=== PATIENT | male | born 1960 | race American Indian/Alaskan Native ===

== ENCOUNTER 2016-12-31 19:47 | Emergency (ER) | payer MEDICAID, OTHER ==
[2016-12-31 19:48] VITALS: BMI 34.5
[2016-12-31 19:55] VITALS: TEMP 97.9
--- NOTE | 2016-12-31 20:13 | ED PDOC ---
Arrival/HPI - General Chief Complaint: Dental Pain Time Seen by Provider: 12/31/16 19:52 Historian: Patient - History of Present Illness Narrative History of Present Illness (Text): 12/31/16 20:10 This 56-year-old male with a past medical history of dental caries since the emergency department complaining of left upper and left lower dental pain for 4 days. Patient stated dental pain has been causing headaches. He denies fever, diplopia, dizziness, nausea, vomiting, some breath, chest pain, abdominal pain, skin rash, or abnormal gait. Patient has an appointment to see his primary dentist next Wednesday. Time/Duration: < week Quality: Aching Context: Home Past Medical History - Provider Review Nursing Documentation Reviewed: Yes - Cardiac Hx Cardiac Disorders: No - Pulmonary Hx Respiratory Disorders: No - Neurological Hx Transient Ischemic Attacks (TIA): Yes (10 YEARS AGO) - HEENT Hx HEENT Disorder: Yes Hx Cataracts: Yes - Renal Hx Renal Disorder: Yes Hx Kidney Stones: Yes (30 YEARS AGO) - Endocrine/Metabolic Hx Endocrine Disorders: No - Hematological/Oncological Hx Anemia: Yes - Integumentary Hx Dermatological Disorder: No - Musculoskeletal/Rheumatological Hx Musculoskeletal Disorders: Yes Hx Back Pain: Yes Other/Comment: BACK AND KNEE PAIN - Gastrointestinal Hx Gastrointestinal Disorders: No - Genitourinary/Gynecological Hx Genitourinary Disorders: No - Psychiatric Hx Psychophysiologic Disorder: No Hx Substance Use: No - Surgical History Hx Gastric Bypass Surgery: Yes Hx Orthopedic Surgery: Yes (LEFT KNEE REPLACEMENT) - Anesthesia Hx Anesthesia: Yes Hx Anesthesia Reactions: No Hx Malignant Hyperthermia: No - Suicidal Assessment Feels Threatened In Home Enviroment: No Family/Social History Family/Social History: Other (Noncontributory) Smoking Status: Former Smoker Hx Alcohol Use: No Hx Substance Use: No Allergies/Home Meds Allergies/Adverse Reactions: Allergies No Known Allergies Allergy (Verified 12/31/16 19:58) Home Medications: Home Meds Medication Instructions Recorded Confirmed Oxycodone HCl [Roxicodone] 5 mg PO HS 12/31/16 12/31/16 Tizanidine HCl [Zanaflex Capsule] 4 mg PO HS 12/31/16 12/31/16 Review of Systems - Review of Systems Constitutional: Normal. absent: Fatigue, Weight Change, Fevers Eyes: Normal ENT: Other (Dental pain) Respiratory: Normal. absent: SOB, Cough Cardiovascular: Normal. absent: Chest Pain, Palpitations Gastrointestinal: Normal. absent: Abdominal Pain, Nausea, Vomiting Genitourinary Male: Normal. absent: Dysuria Musculoskeletal: Normal. absent: Arthralgias, Back Pain, Neck Pain, Joint Swelling, Myalgias Skin: Normal. absent: Rash Neurological: Headache. absent: Dizziness, Focal Weakness, Gait Changes, Speech Changes, Facial Droop, Disequilibrium, Seizure Endocrine: Normal Hemo/Lymphatic: Normal Psychiatric: Normal Physical Exam Vital Signs Temp Pulse Resp BP Pulse Ox 12/31/16 19:52 97.9 F 12/31/16 19:48 98.1 F 90 17 142/92 H 100 Temperature: Afebrile Blood Pressure: Hypertensive Pulse: Regular Respiratory Rate: Normal Appearance: Positive for: Well-Appearing, Non-Toxic, Comfortable Pain Distress: None Mental Status: Positive for: Alert and Oriented X 3 - Systems Exam Head: Present: Atraumatic, Normocephalic, Other (No facial swelling) Pupils: Present: PERRL Extroacular Muscles: Present: EOMI Conjunctiva: Present: Normal Mouth: Present: Moist Mucous Membranes, Normal Lips, Normal Tounge, Other ( generalized caries). No: Drooling, Trismus Pharnyx: Present: Normal. No: ERYTHEMA, EXUDATE, TONSILS ENLARGED Nose (External): Present: Atraumatic Nose (Internal): Present: Normal Inspection Neck: Present: Normal Range of Motion, Trachea Midline, Other. No: Meningeal Signs, MIDLINE TENDERNESS, Paraspinal Tenderness Respiratory/Chest: Present: Clear to Auscultation, Good Air Exchange. No: Respiratory Distress, Accessory Muscle Use Cardiovascular: Present: Regular Rate and Rhythm, Normal S1, S2. No: Murmurs Abdomen: Present: Normal Bowel Sounds. No: Tenderness, Distention, Peritoneal Signs Back: Present: Normal Inspection Upper Extremity: Present: Normal Inspection, Normal ROM. No: Cyanosis, Edema Lower Extremity: Present: Normal Inspection, Normal ROM. No: Edema Neurological: Present: GCS=15, CN II-XII Intact, Speech Normal, Motor Func Grossly Intact, Normal Sensory Function, Normal Cerebellar Funct, Gait Normal, Memory Normal Skin: Present: Warm, Dry, Normal Color. No: Rashes Psychiatric: Present: Alert, Oriented x 3, Normal Insight, Normal Concentration Medical Decision Making ED Course and Treatment: 12/31/16 21:03 Patient began complaining of left upper and lower molar pain 4 days. Also noted this causing mild headache. Physical exam was unremarkable except for generalized dental caries. No dental abscess, no facial swelling. Patient appears nontoxic, positive. During my physical exam patient continuously using his cell phone and texting. Patient has abnormal speech, is alert and oriented 3, he has a normal gait. Disposition is requesting antibiotics and he wishes to be discharged home soon. She noted he has appointment to see his doctor next Wednesday, in 4 days. Patient was recommended to return to the emergency department if his dental pain or headache worsen. His vital signs were reviewed and and they are unremarkable Re-evaluation Time: 21:06 Reassessment Condition: Re-examined, Improved - Medication Orders Current Medication Orders: Discontinued Medications Amoxicillin (Amoxil 500 Mg Cap) 500 mg PO STAT STA PRN Reason: Protocol Stop: 12/31/16 20:13 Last Admin: 12/31/16 20:51 Dose: 500 mg Ketorolac Tromethamine (Toradol) 30 mg IM STAT STA Stop: 12/31/16 20:12 Last Admin: 12/31/16 20:51 Dose: 30 mg MAR Pain Assessment Document 12/31/16 20:51 SF (Rec: 12/31/16 20:52 [id number]) Pain Reassessment Is this a pain reassessment? Yes Sleep Is patient sleeping during reassessment? No Presence of Pain Presence of Pain Yes IM Administration Charges Document 12/31/16 20:51 SF (Rec: 12/31/16 20:52 [id number]) Injection Site MAR Injection Site Left Deltoid Charges for Administration # of IM Administrations 1 Disposition/Present on Arrival - Present on Arrival Any Indicators Present on Arrival: No History of DVT/PE: No History of Uncontrolled Diabetes: No Urinary Catheter: No History of Decub. Ulcer: No History Surgical Site Infection Following: None - Disposition Have Diagnosis and Disposition been Completed?: Yes Diagnosis: Pain due to dental caries, Headache Disposition: HOME/ ROUTINE Disposition Time: 21:07 Patient Plan: Discharge Condition: GOOD Discharge Instructions (ExitCare): Dental Caries (ED), General Headache (ED) Additional Instructions: Private doctor tomorrow for follow-up visit. Medication as instructed with food. Return to emergency if dental pain worsen or if you develop a fever or stiffness or neck. Have your blood pressure recheck in 2-3 days by your doctor Prescriptions: Amoxicillin [Amoxil 500 mg Cap] 500 mg PO TID #30 cap Chlorhexidine 0.12% [Peridex] 15 ml PO BID #1 bottle Famotidine [Pepcid] 40 mg PO DAILY #10 tablet Naproxen 500 mg PO BID PRN #14 tab PRN Reason: Pain, Severe (8-10) Referrals: Jose Medellin MD [Primary Care Provider] - Follow up with primary Forms: [facility] (Ugandan), WORK NOTE
[2016-12-31 20:41] VITALS: RESP 17
[2016-12-31 21:17] VITALS: BP 140/89; PULSE 91; O2SAT 99
== END 2016-12-31 21:15 | disposition home or self-care (01) ==
LOC: ED 19:47
DX: K02.9 Dental caries, unspecified (principal); R51 Headache; K08.89 Other specified disorders of teeth and supporting structures
CPT/HCPCS: 96372; 99283; J1885

== ENCOUNTER 2017-01-07 02:38 | Emergency (ER) | payer MEDICAID ==
[2017-01-07 02:45] VITALS: BMI 32.5
[2017-01-07] MEDS ORDERED: DiphenhydrAMINE 50 mg/ml Inj IVP STA (02:58)
--- NOTE | 2017-01-07 03:17 | ED PDOC ---
Arrival/HPI - General Chief Complaint: Headache Time Seen by Provider: 01/07/17 02:39 Historian: Patient - History of Present Illness Narrative History of Present Illness (Text): 01/07/17 03:16 A 56 year old male, whose past medical history includes TIA, presents to the emergency department complaining of left sided headache. Patient reports he came to the emergency department a week ago for evaluation of dental pain and headache. Reports tooth was pulled two days ago. Notes some nausea but denies any fever, vomiting, abdominal pain or any other complaints at this time. Time/Duration: < week Symptom Onset: Sudden Symptom Course: Unchanged Activities at Onset: Rest Context: Home Past Medical History - Provider Review Nursing Documentation Reviewed: Yes - Cardiac Hx Cardiac Disorders: No - Pulmonary Hx Respiratory Disorders: No - Neurological Hx Transient Ischemic Attacks (TIA): Yes (10 YEARS AGO) - HEENT Hx HEENT Disorder: Yes Hx Cataracts: Yes - Renal Hx Renal Disorder: Yes Hx Kidney Stones: Yes (30 YEARS AGO) - Endocrine/Metabolic Hx Endocrine Disorders: No - Hematological/Oncological Hx Anemia: Yes - Integumentary Hx Dermatological Disorder: No - Musculoskeletal/Rheumatological Hx Musculoskeletal Disorders: Yes Hx Back Pain: Yes Other/Comment: BACK AND KNEE PAIN - Gastrointestinal Hx Gastrointestinal Disorders: No - Genitourinary/Gynecological Hx Genitourinary Disorders: No - Psychiatric Hx Psychophysiologic Disorder: No Hx Substance Use: No - Surgical History Hx Gastric Bypass Surgery: Yes (2002) Hx Orthopedic Surgery: Yes (LEFT KNEE REPLACEMENT) - Anesthesia Hx Anesthesia: Yes Hx Anesthesia Reactions: No Hx Malignant Hyperthermia: No - Suicidal Assessment Feels Threatened In Home Enviroment: No Family/Social History - Physician Review Nursing Documentation Reviewed: Yes Family/Social History: No Known Family HX Smoking Status: Former Smoker Hx Alcohol Use: No Hx Substance Use: No Allergies/Home Meds Allergies/Adverse Reactions: Allergies No Known Allergies Allergy (Verified 01/07/17 02:53) Home Medications: Home Meds Medication Instructions Recorded Confirmed Oxycodone HCl [Roxicodone] 5 mg PO HS 12/31/16 01/07/17 Tizanidine HCl [Zanaflex Capsule] 4 mg PO HS 12/31/16 01/07/17 Review of Systems - Physician Review All systems were reviewed & negative as marked: Yes - Review of Systems Constitutional: absent: Fevers Gastrointestinal: Nausea. absent: Abdominal Pain, Vomiting Neurological: Headache (left sided) Physical Exam Vital Signs Reviewed: Yes Vital Signs Temp Pulse Resp BP Pulse Ox 01/07/17 04:38 76 16 125/82 96 01/07/17 02:38 98.3 F 78 16 125/87 98 Appearance: Positive for: Well-Appearing, Non-Toxic, Comfortable Pain Distress: None Mental Status: Positive for: Alert and Oriented X 3 - Systems Exam Head: Present: Atraumatic, Normocephalic Pupils: Present: PERRL Extroacular Muscles: Present: EOMI Conjunctiva: Present: Normal Mouth: Present: Moist Mucous Membranes, Other (multiple dental caries) Neck: Present: Normal Range of Motion Respiratory/Chest: Present: Clear to Auscultation, Good Air Exchange. No: Respiratory Distress, Accessory Muscle Use Cardiovascular: Present: Regular Rate and Rhythm, Normal S1, S2. No: Murmurs Abdomen: Present: Normal Bowel Sounds. No: Tenderness, Distention, Peritoneal Signs Back: Present: Normal Inspection Upper Extremity: Present: Normal Inspection. No: Cyanosis, Edema Lower Extremity: Present: Normal Inspection. No: Edema Neurological: Present: GCS=15, CN II-XII Intact, Speech Normal Skin: Present: Warm, Dry, Normal Color. No: Rashes Psychiatric: Present: Alert, Oriented x 3, Normal Insight, Normal Concentration Medical Decision Making ED Course and Treatment: 01/07/17 03:14 Impression: A 56 year old male with left sided headache. Plan: -- CT head -- labs -- Benadryl, Reglan -- Reassess and disposition Prior Visits: Notes and results from previous visits were reviewed. Patient was last seen in the emergency department on 12/31/16 for evaluation of dental pain and headache. Progress Notes: CT Head Without Intravenous Contrast FINDINGS: LIMITATIONS: Mild streak/motion artifact. BRAIN: Diffuse, mild, age-related cortical atrophy and ventriculomegaly. No significant acute abnormality identified. No acute hemorrhage seen within the brain. No acute extra-axial fluid collections visualized. No evidence of significant mass effect within the brain. VENTRICLES: Best seen on image 14 of series 2, there is a 9 mm round, well defined masslike density in the left temporal lobe medially, which is suspected to be intraventricular, located in the temporal horn of the left lateral ventricle. This has a density similar to the normal brain parenchyma. It does appear to be causing mild dilatation of the left temporal horn. There is no evidence of diffuse hydrocephalus. BONES/JOINTS: No acute fractures or other acute bony abnormality noted. SOFT TISSUES: No acute abnormality of the visualized soft tissues is seen. SINUSES: Visualized paranasal sinuses appear clear. MASTOID AIR CELLS: Mastoid air cells appear clear. IMPRESSION: - Findings suspicious for a small 9 mm round, well-defined intraventricular mass , located in the temporal horn of the left lateral ventricle. This is of uncertain etiology. MRI of the brain with gadolinium is recommended for further evaluation, not necessarily on an emergent basis. - No acute findings seen within the brain. No evidence of intracranial hemorrhage or mass effect. - See above for remaining findings. Dictated and Authenticated by: Abril Weber MD 01/07/2017 4:26 AM Eastern Time ([place] & [place]) 01/07/17 05:14 extensive times spent bedside to explain importance of outtp mri. - Lab Interpretations Lab Results: 01/07/17 03:10 01/07/17 03:10 Lab Results 01/07/17 03:10: Sodium 140, Potassium 4.4, Chloride 107, Carbon Dioxide 24, Anion Gap 13, BUN 22 H, Creatinine 1.0, Est GFR ( Amer) > 60, Est GFR ( Non-Af Amer) > 60, Random Glucose 92, Calcium 8.8, Total Bilirubin 0.3, AST 37, ALT 44, Alkaline Phosphatase 93, Total Protein 7.0, Albumin 3.8, Globulin 3.2, Albumin/Globulin Ratio 1.2 01/07/17 03:10: PT 11.3, INR 1.04, APTT 26.5 01/07/17 03:10: WBC 4.4 L, RBC 4.49, Hgb 11.5 L, Hct 36.2 L, MCV 80.6, MCH 25.6 , MCHC 31.8, RDW 16.8 H, Plt Count 224, MPV 9.9, Gran % 62.5, Lymph % (Auto) 24.7, Boyle % (Auto) 10.0 H, Eos % (Auto) 2.3, Baso % (Auto) 0.5, Gran # 2.74, Lymph # 1.1 L, Boyle # 0.4, Eos # 0.1, Baso # 0.02 I have reviewed the lab results: Yes - RAD Interpretation Radiology Orders: 01/07/17 02:57 HEAD W/O CONTRAST [CT] Stat - Medication Orders Current Medication Orders: Discontinued Medications Diphenhydramine HCl (Benadryl) 25 mg IVP STAT STA Stop: 01/07/17 02:59 Last Admin: 01/07/17 03:14 Dose: 25 mg IVP Administration Document 01/07/17 03:14 JOL (Rec: 01/07/17 03:14 JOL [id number]) Charges for Administration # of IVP Administrations 1 Metoclopramide HCl (Reglan) 10 mg IVP STAT STA Stop: 01/07/17 02:59 Last Admin: 01/07/17 03:14 Dose: 10 mg IVP Administration Document 01/07/17 03:14 JOL (Rec: 01/07/17 03:14 JOL [id number]) Charges for Administration # of IVP Administrations 1 - Scribe Statement The provider has reviewed the documentation as recorded by the Zara Quintero Provider Scribe Attestation: All medical record entries made by the Scribe were at my direction and personally dictated by me. I have reviewed the chart and agree that the record accurately reflects my personal performance of the history, physical exam, medical decision making, and the department course for this patient. I have also personally directed, reviewed, and agree with the discharge instructions and disposition. Disposition/Present on Arrival - Present on Arrival Any Indicators Present on Arrival: No History of DVT/PE: No History of Uncontrolled Diabetes: No Urinary Catheter: No History of Decub. Ulcer: No History Surgical Site Infection Following: None - Disposition Have Diagnosis and Disposition been Completed?: Yes Diagnosis: Headache Disposition: HOME/ ROUTINE Disposition Time: 04:00 Condition: STABLE Discharge Instructions (ExitCare): Acute Headache (ED) Additional Instructions: you will need an mri of your brain. please see your doctor/specialist to arrange this test. return to er with worsening symptoms or concerns. Prescriptions: Acetaminophen/Butalbital/Caf [Fioricet] 1 tab PO Q6 PRN #20 tab PRN Reason: Headache Referrals: [facility] [Outside] - Follow up with primary Jose Medellin MD [Primary Care Provider] - Follow up with primary Jeb Steele MD [Staff Provider] - Follow up with primary Carlito Mckeon MD [Staff Provider] - Follow up with primary Forms: [employer] (Wolof)
[2017-01-07 03:33] LABS: BASO # 0.02 K/mm3 (0.0-2.0); BASO % 0.5 % (0.0-3.0); EOS # 0.1 (0.0-0.7); EOS % 2.3 % (1.5-5.0); GRAN # 2.74 (1.4-6.5); GRAN % 62.5 % (50.0-68.0); HEMATOCRIT 36.2 % (42.0-52.0); LYMPH # 1.1 (1.2-3.4); LYMPH % 24.7 % (22.0-35.0); MEAN CELL VOLUME 80.6 fl (80.0-105.0); MEAN CORPUSCULAR HEMOGLOBIN 25.6 pg (25.0-35.0); MEAN CORPUSCULAR HGB CONC 31.8 g/dl (31.0-37.0); MEAN PLATELET VOLUME 9.9 fl (7.0-11.0); MONO # 0.4 (0.1-0.6); RED CELL DISTRIBUTION WIDTH 16.8 % (11.5-14.5); WHITE BLOOD COUNT 4.4 10^3/ul (4.5-11.0)
[2017-01-07 03:35] LABS: ALB/GLOB RATIO 1.2 (1.1-1.8); ALKALINE PHOSPHATASE 93 U/L (38-126); ALT/SGPT 44 U/L (7-56); AST/SGOT 37 U/L (17-59); BILIRUBIN,TOTAL 0.3 mg/dL (0.2-1.3); BLOOD UREA NITROGEN 22 mg/dL (7-21); CALCIUM 8.8 mg/dL (8.4-10.5); CARBON DIOXIDE 24 mmol/L (21-33); CHLORIDE 107 mmol/L (95-110); GFR AFRICAN-AMERICAN > 60; GLUCOSE,RANDOM 92 mg/dL (70-110); POTASSIUM 4.4 mmol/L (3.6-5.0); SODIUM 140 mmol/L (132-148)
[2017-01-07 03:41] LABS: INR 1.04 (0.93-1.08); PARTIAL THROMBOPLASTIN TIME 26.5 Seconds (25.1-36.5)
--- NOTE | 2017-01-07 04:27 | CT ---
EXAM: CT Head Without Intravenous Contrast EXAM DATE/TIME: 01/07/2017 2:57 AM CLINICAL HISTORY: 56 years old, male; Pain; Headache; Additional info: [facility] TECHNIQUE: Axial computed tomography images of the head/brain without intravenous contrast. All CT scans at this facility use one or more dose reduction techniques, viz.: automated exposure control; ma/kV adjustment per patient size (including targeted exams where dose is matched to indication; i.e. head); or iterative reconstruction technique. COMPARISON: No relevant prior studies available. The FINDINGS: LIMITATIONS: Mild streak/motion artifact. BRAIN: Diffuse, mild, age-related cortical atrophy and ventriculomegaly. No significant acute abnormality identified. No acute hemorrhage seen within the brain. No acute extra-axial fluid collections visualized. No evidence of significant mass effect within the brain. VENTRICLES: Best seen on image 14 of series 2, there is a 9 mm round, well defined masslike density in the left temporal lobe medially, which is suspected to be intraventricular, located in the temporal horn of the left lateral ventricle. This has a density similar to the normal brain parenchyma. It does appear to be causing mild dilatation of the left temporal horn. There is no evidence of diffuse hydrocephalus. BONES/JOINTS: No acute fractures or other acute bony abnormality noted. SOFT TISSUES: No acute abnormality of the visualized soft tissues is seen. SINUSES: Visualized paranasal sinuses appear clear. MASTOID AIR CELLS: Mastoid air cells appear clear. IMPRESSION: - Findings suspicious for a small 9 mm round, well-defined intraventricular mass, located in the temporal horn of the left lateral ventricle. This is of uncertain etiology. MRI of the brain with gadolinium is recommended for further evaluation, not necessarily on an emergent basis. - No acute findings seen within the brain. No evidence of intracranial hemorrhage or mass effect. - See above for remaining findings.
[2017-01-07 04:49] VITALS: RESP 16; TEMP 98.3
[2017-01-07 04:53] VITALS: BP 125/82; PULSE 76; O2SAT 96
== END 2017-01-07 04:53 | disposition home or self-care (01) ==
LOC: ED 02:38
DX: R51 Headache (principal); Z86.73 Personal history of transient ischemic attack (TIA), and cerebral infarction without residual deficits
CPT/HCPCS: 70450; 80053; 85025; 85610; 85730; 96374; 96375; 99285; J1200; J2765